=== PATIENT | male | born 1955 | race Caucasian/White ===

== ENCOUNTER → 2016-11-10 | Outpatient (CLI) | payer OTHER ==
[2016-11-10 11:47] LABS: ALT 42 U/L (21-72); AST 30 U/L (17-59); Alkaline Phosphatase 62 U/L (38-126); Anion Gap 10 mmol/L; Bilirubin, Delta 0.2 mg/dL (0.0-0.2); Blood Urea Nitrogen 20 mg/dL (9-20); Calcium 8.6 mg/dL (8.4-10.2); Carbon Dioxide 30 mmol/L (22-30); Chloride 104 mmol/L (98-107); Cholesterol 126 mg/dL (<200); Glucose 89 mg/dL (74-99); HDL Cholesterol 42 mg/dL (40-60); Non-African American GFR(MDRD) >60 (>60 ml/min/1.73 sqM); Potassium 4.2 mmol/L (3.5-5.1); Sodium 144 mmol/L (137-145); Total Bilirubin 0.7 mg/dL (0.2-1.3); Total Protein 6.6 g/dL (6.3-8.2); Triglycerides 80 mg/dL (<150)
[2016-11-10 12:41] LABS: Basophils % (A) 1 %; CH 30.9; Eosinophils # (A) 0.1 k/uL (0-0.7); Eosinophils % (A) 4 %; HCT 47.3 % (39.0-53.0); HDW 2.76; HGB 15.6 gm/dL (13.0-17.5); Luc # (Auto) 0.07; Luc % (Auto) 3; Lymphocytes % (A) 41 %; MCH 30.3 pg (25.0-35.0); MCHC 33.1 g/dL (31.0-37.0); MCV 91.5 fL (80.0-100.0); Mean Platelet Volume 7.3; Monocytes # (A) 0.2 k/uL (0-1.0); Monocytes % (A) 8 %; Neutrophils % (A) 43 %; RBC 5.17 m/uL (4.30-5.90); WBC 2.4 k/uL (3.8-10.6); WBC (Perox) 2.33
[2016-11-10 13:27] LABS: Hemoglobin A1C 5.4 % (4.2-6.1)
== END | disposition home or self-care (01) ==
LOC: LABWHC1 10:41
PROVIDERS: ATTEND Internal Medicine
DX: Z51.81 Encounter for therapeutic drug level monitoring (principal); Z79.899 Other long term (current) drug therapy
CPT/HCPCS: 84439; 84481; 80061; 80053; 82248; 83036; 84443; 85025; 36415; G0103

== ENCOUNTER → 2016-11-21 | Outpatient (CLI) | payer OTHER ==
[2016-11-21 10:33] LABS: Basophils % (A) 0 %; CH 30.9; CHCM 34.5; Eosinophils # (A) 0.1 k/uL (0-0.7); Eosinophils % (A) 1 %; HCT 46.4 % (39.0-53.0); HDW 2.84; HGB 15.3 gm/dL (13.0-17.5); Luc # (Auto) 0.09; Luc % (Auto) 2; Lymphocytes # (A) 1.5 k/uL (1.0-4.8); Lymphocytes % (A) 29 %; MCH 29.6 pg (25.0-35.0); MCHC 32.9 g/dL (31.0-37.0); Monocytes # (A) 0.3 k/uL (0-1.0); Monocytes % (A) 6 %; Neutrophils # (A) 3.1 k/uL (1.3-7.7); Neutrophils % (A) 61 %; RBC 5.16 m/uL (4.30-5.90); RDW 12.8 % (11.5-15.5); WBC (Perox) 5.09
[2016-11-21 12:12] LABS: Erythrocyte Sedimentation Rate 2 mm/hr (0-15)
== END | disposition home or self-care (01) ==
LOC: LABWHC1 09:22
PROVIDERS: ATTEND Internal Medicine
DX: D72.819 Decreased white blood cell count, unspecified (principal); G72.9 Myopathy, unspecified; R63.4 Abnormal weight loss
CPT/HCPCS: 36415; 82550; 85025; 85652; 86038

== ENCOUNTER → 2018-07-24 | Outpatient (CLI) | payer OTHER ==
--- NOTE | 2018-07-24 12:29 | XR ---
EXAMINATION TYPE: XR shoulder complete RT DATE OF EXAM: 07/24/2018 COMPARISON: NONE HISTORY: 62-year-old male right shoulder pain when lifting and reaching, sprain. TECHNIQUE: 3 views FINDINGS: AC joint appears intact and congruent. Subacromial space is preserved. No tendinous or bursal calcifi cations. Smooth delineation to the greater tuberosity. No acute fracture, subluxation, or dislocation . IMPRESSION: No acute osseous abnormality seen.
== END | disposition home or self-care (01) ==
LOC: RADXRMAIN 11:59
PROVIDERS: ATTEND Emergency Medicine
DX: S43.401A Unspecified sprain of right shoulder joint, initial encounter (principal)

== ENCOUNTER 2018-07-29 07:15 | Day surgery (SDC) | payer BC, OTHER ==
[2018-07-25 12:44] VITALS: BMI 25.0
[~2018-07-29 07:15] MED LIST: LACTATED RINGERS 1,000 ML IV SCH; LIDOCAINE 1% 20 ML VIAL (10MG/ML) FOR IV START INTRADERMA PRN
[2018-07-29 07:36] VITALS: RESP 16; TEMP 97.7
[2018-07-29] MEDS ORDERED: PROPOFOL 10 MG/ML 20 ML VIAL IV ONE (08:38)
--- NOTE | 2018-07-29 09:10 | P.PCN ---
Date of Procedure: 07/29/18 Procedure(s) Performed: Procedure: Colonoscopy and biopsy. Preoperative diagnosis: Screening for neoplasia, patient has history of polyps. Postoperative diagnosis: Diminutive sigmoid polyp biopsied, otherwise, exam to the cecum within normal limits. Preparation: HalfLytely prep. Sedation: Was provided by anesthesia. Brief clinical history: The patient is a 62-year-old male who is scheduled for this evaluation because of history of polyps. His last exam was in 2012. The patient has no abdominal complaints, bleeding or anemia. Procedure: With the patient on his left lateral decubitus position and after informed consent and adequate sedation, the perianal area was inspected and it did not show any fissures or fistulas. There were no masses felt on digital rectal examination. The Olympus CFQ 160L video colonoscope was then inserted in the rectum in the usual fashion and advanced to the cecum. There was a diminutive polyp in the proximal sigmoid which I biopsied but there were no large polyps or cancer. The mucosa appeared healthy. I retroflexed the endoscope in the rectum before the endoscope was withdrawn. The patient tolerated the procedure well. Plan: The patient was reassured. He will follow up with you as planned and I recommended repeat exam in 5 years.
[2018-07-29 09:50] VITALS: BP 122/74; PULSE 64
== END 2018-07-29 09:51 | disposition home or self-care (01) ==
LOC: ORWHC2ENDO 07:15
DX: Z12.11 Encounter for screening for malignant neoplasm of colon (principal); D12.5 Benign neoplasm of sigmoid colon; Z86.010 Personal history of colon polyps; E78.5 Hyperlipidemia, unspecified; Z79.899 Other long term (current) drug therapy
CPT/HCPCS: 88305; 45380; J2704

== ENCOUNTER → 2018-07-31 | Outpatient (CLI) | payer OTHER ==
--- NOTE | 2018-08-01 14:32 | MR ---
EXAMINATION TYPE: MR shoulder RT wo con DATE OF EXAM: 07/31/2018 COMPARISON: 07/24/2018 right shoulder radiographs HISTORY: Right shoulder pain TECHNIQUE: Multiplanar, multisequence imaging of the right shoulder is performed without contrast. FINDINGS: Rotator Cuff: There is a low-grade partial-thickness bursal surface tear of the supraspinatus within the distal fibers after the myotendinous junction superimposed upon bursal surface fiber fraying and mild supraspinatus tendinopathy. There is a partial thickness articular surface tear of the infraspinatus measuring 0.4 x 0.5 cm as we ll as bursal surface fiber fraying superimposed upon mild tendinopathy. The teres minor is unremarkable and muscle volume and signal. The subscapularis is unremarkable and muscle volume and signal. Acromioclavicular Joint: There is very mild bone marrow edema within the distal clavicle and moderate acromioclavicular arthropathy demonstrated as capsular hypertrophy, small marginal osteophytes and s ubchondral cysts. Only minimal impingement on the supraspinatus is seen. No downsloping of the acromi on. Glenohumeral Joint: There is mild glenohumeral joint space narrowing and few osseous cysts of the hum eral head. Subchondral 5 mm cyst is seen of the posterior superior glenoid with other small subchondr al cysts of the glenoid. Labrum: There is a posterior superior glenoid labrum tear extending into the inferior labrum with a 3 mm associated paralabral cyst. There is at least labral degeneration of the anterior superior glenoi d labrum. Biceps Tendon: The long head of biceps is in normal location within bicipital groove. There is attenu ation of the intra-articular portion of the biceps tendon compatible with mild tendinopathy. Other: A very small amount of fluid is seen within the subcoracoid bursa as well as within the subdel toid/subacromial bursa. IMPRESSION: 1. Low-grade partial-thickness bursal surface tear of the supraspinatus superimposed upon mild tendin opathy and bursal surface fiber fraying. 2. Low-grade partial-thickness articular surface tear of the infraspinatus superimposed upon mild ten dinopathy with bursal surface fraying. 3. Mild bone marrow edema of the distal clavicle that may relate to the associated moderate acromiocl avicular arthropathy or osseous contusion. Correlate for recent trauma/injury. No distinct fracture i s seen. 4. Mild intra-articular portion biceps tendinosis. 5. Posterior superior glenoid labral tear and associated paralabral cyst with extension into the infe rior labrum and at least anterior superior glenoid labrum degeneration. 6. Mild glenohumeral arthropathy. 7. Trace fluid within the subcoracoid as well as the subacromial/subdeltoid bursa that may clinically correlate with bursitis.
== END | disposition home or self-care (01) ==
LOC: RADMRIMAIN 17:26
PROVIDERS: ATTEND Emergency Medicine
DX: S43.491D Other sprain of right shoulder joint, subsequent encounter (principal); M75.111 Incomplete rotator cuff tear or rupture of right shoulder, not specified as traumatic; M19.011 Primary osteoarthritis, right shoulder; M75.21 Bicipital tendinitis, right shoulder

== ENCOUNTER 2020-02-25 09:19 | Emergency (ER) | payer BC, OTHER ==
[2020-02-25 09:28] VITALS: BP 145/88; PULSE 74; RESP 18; TEMP 98.2
[2020-02-25] MEDS ORDERED: LIDOCAINE 1% INJ 10MG/ML (20 ML MDV) SQ ONE (09:41)
[2020-02-25] MEDS ORDERED: DIPH,PERTUS(ACELL)TETVAC-LF 0.5 ML VIAL IM ONE (09:41)
--- NOTE | 2020-02-25 10:04 | ED ---
Wound/Laceration HPI - General Chief Complaint: Wound/Laceration Stated Complaint: Hand Laceration Time Seen by Provider: 02/25/20 09:38 Source: patient, RN notes reviewed Mode of arrival: ambulatory Limitations: no limitations - History of Present Illness Initial Comments: This is a 64-year-old male presents emergency Department chief complaint lacerat ion to his left home. Patient states he used using a utility not to cut open a box when he cut his left hand. He is unsure when his last tetanus was. Denies any increased sensation or decreased strength of his left hand or digits. Patient denies any other noted injuries at this time. Bleeding is controlled with pressure. - Related Data Home Medications Medication Instructions Recorded Confirmed Simvastatin [Zocor] 40 mg PO HS 02/25/20 02/25/20 Allergies Allergy/AdvReac Type Severity Reaction Status Date / Time No Known Allergies Allergy Verified 02/25/20 09:58 Review of Systems ROS Statement: Those systems with pertinent positive or pertinent negative responses have been documented in the HPI. ROS Other: All systems not noted in ROS Statement are negative. Past Medical History Past Medical History: No Reported History History of Any Multi-Drug Resistant Organisms: None Reported Past Surgical History: Hernia Repair Additional Past Surgical History / Comment(s): lung sx Past Psychological History: No Psychological Hx Reported Smoking Status: Never smoker Past Alcohol Use History: None Reported Past Drug Use History: None Reported General Exam Limitations: no limitations General appearance: alert, in no apparent distress Respiratory exam: Present: normal lung sounds bilaterally. Absent: respiratory distress, wheezes, rales, rhonchi, stridor Cardiovascular Exam: Present: regular rate, normal rhythm, normal heart sounds. Absent: systolic murmur, diastolic murmur, rubs, gallop, clicks Extremities exam: Present: other (Left hand palmar aspect there is a 3 cm laceration radial pulses are equal bilaterally, capillary refill of all digits less than 2 seconds) Neurological exam: Present: reflexes normal. Absent: motor sensory deficit Skin exam: Present: warm, dry, normal color. Absent: rash Course Vital Signs 02/25/20 09:24 Temperature 98.2 F Pulse Rate 74 Respiratory 18 Rate Blood Pressure 145/88 O2 Sat by Pulse 96 Oximetry Procedures - Laceration Laceration #1 Consent Obtained: verbal consent Indication: laceration Site: hand (Left hand palmar aspect) Size (cm): 3 Description: flap, irregular Depth: simple, single layer Anesthetic Used: lidocaine 1%, without epi Anesthesia Technique: local infiltration Amount (mls): 6 Pre-repair: wound explored, irrigated extensively, deep structures intact Type of Sutures: nylon Size of Sutures: 4-0, 6-0 Number of Sutures: 6 Technique: simple, interrupted Patient Tolerated Procedure: well, no complications Medical Decision Making - Medical Decision Making 64-year-old male presented for laceration. Patient's tetanus is updated patient's laceration was closed using 6 sutures. Patient is neurovascularly intact will have follow-up in 24 hours and return for any worsening symptoms. Wound care infections were provided. Disposition Clinical Impression: Laceration of right hand Disposition: HOME SELF-CARE Condition: Stable Instructions (If sedation given, give patient instructions): Care For Your S titches (ED), Laceration (ED) Additional Instructions: Has sutures removed in 10 days.Please return to the Emergency Department if symptoms worsen or any other concerns. Is patient prescribed a controlled substance at d/c from ED?: No Referrals: Rocco Grace MD [Primary Care Provider] - 1-2 days Time of Disposition: 10:04
== END 2020-02-25 10:29 | disposition home or self-care (01) ==
LOC: EC 09:19
DX: S61.412A Laceration without foreign body of left hand, initial encounter (principal); W26.0XXA Contact with knife, initial encounter; Y93.89 Activity, other specified; Y92.69 Other specified industrial and construction area as the place of occurrence of the external cause; Y99.0 Civilian activity done for income or pay; Z23 Encounter for immunization
CPT/HCPCS: 90715; 99282; 12002; 90471; J2001

== ENCOUNTER → 2022-12-08 | Outpatient (CLI) | payer OTHER ==
--- NOTE | 2022-12-08 16:56 | XR ---
EXAMINATION TYPE: XR chest 2V DATE OF EXAM: 12/08/2022 4:32 PM COMPARISON: Chest radiographs from 01/23/2018. TECHNIQUE: XR chest 2V Frontal and lateral views of the chest. CLINICAL INDICATION:Male, 67 years old with history of J40; FINDINGS: Lungs/Pleura: There is no evidence of pleural effusion, focal consolidation, or pneumothorax. Pulmonary vascularity: Unremarkable. Heart/mediastinum: Cardiomediastinal silhouette is unremarkable. Musculoskeletal: No acute osseous pathology. IMPRESSION: No acute cardiopulmonary disease/process.
== END | disposition home or self-care (01) ==
LOC: RADXRMAIN 16:14
PROVIDERS: ATTEND Internal Medicine Geriatric Medicine
DX: J40 Bronchitis, not specified as acute or chronic (principal)
CPT/HCPCS: 71046